=== PATIENT | male | born 1955 | race Caucasian/White ===

== ENCOUNTER 2020-09-03 07:43 | Day surgery (SDC) | payer MEDICARE, OTHER ==
[~2020-09-03 07:43] MED LIST: Lactated Ringers 1,000 ML IV SCH; Lidocaine 1%/Sod Bicarbonate in NS 8.4% 1 ML Syringe IDERM PRN; Sodium Chloride 0.9% 10 ML Syringe FLUSH PRN
--- NOTE | 2020-09-03 07:52 | PCM.PREANE ---
Preanesthetic Assessment - Procedure Proposed Procedure: colonoscopy screening - Anesthesia/Transfusion/Family Hx Anesthesia History: No Prior Anesthesia Family History of Anesthesia Reaction: No Transfusion History: No Prior Transfusion(s) - Review of Systems General: No Symptoms Pulmonary: No Symptoms Cardiovascular: Dyspnea on Exertion Gastrointestinal: No Symptoms Neurological: Numbness (hands at times) Other: Reports: Neck Pain (Hurts when turn to left) - Physical Assessment NPO Status Date: 09/02/20 NPO Status Time: 00:00 Height: 1.8 m Weight: 85 kg ASA Class: 2 Mental Status: Alert & Oriented x3 Airway Class: Mallampati = 1 Dentition: Reports: Dentures Thyro-Mental Finger Breadths: 3 Mouth Opening Finger Breadths: 3 ROM/Head Extension: Full Lungs: Clear to Auscultation, Normal Respiratory Effort Cardiovascular: Regular Rate, Regular Rhythm - Allergies Allergies/Adverse Reactions: Allergies Allergy/AdvReac Type Severity Reaction Status Date / Time Fish Containing Products Allergy Other Verified 09/02/20 15:15 - Blood Blood Available: No Product(s) Available: None - Anesthesia Plan Pre-Op Medication Ordered: None - Acknowledgements Anesthesia Type Planned: MAC Pt an Appropriate Candidate for the Planned Anesthesia: Yes Alternatives and Risks of Anesthesia Discussed w Pt/Guardian: Yes Pt/Guardian Understands and Agrees with Anesthesia Plan: Yes PreAnesthesia Questionnaire HEENT History: Reports: Impaired Vision, Other (See Below) Other HEENT History: wears glasses, has upper denture, bilateral hearing aids Cardiovascular History: Reports: High Cholesterol Respiratory History: Reports: Sleep Apnea, Other (See Below) Other Respiratory History: nocturnal hypoxia Gastrointestinal History: Reports: Colon Polyp Genitourinary History: Reports: Other (See Below) Other Genitourinary History: erectile dysfunction, elevated PSA [employer] History: Reports: None Musculoskeletal History: Reports: Other (See Below) Other Musculoskeletal History: right wrist carpal tunnel syndrome Neurological History: Reports: None Psychiatric History: Reports: None Endocrine/Metabolic History: Reports: None Hematologic History: Reports: None Immunologic History: Reports: None Dermatologic History: Reports: Other (See Below) Other Dermatologic History: left arm swelling, soft tissue mass - Infectious Disease History Infectious Disease History: Reports: None - Past Surgical History Head Surgeries/Procedures: Reports: None HEENT Surgical History: Reports: Naso-Sinus Surgery Cardiovascular Surgical History: Reports: None Respiratory Surgical History: Reports: None GI Surgical History: Reports: Colonoscopy Female Surgical History: Reports: None Male Surgical History: Reports: None Endocrine Surgical History: Reports: None Neurological Surgical History: Reports: None Musculoskeletal Surgical History: Reports: Other (See Below) Other Musculoskeletal Surgeries/Procedures:: leg surgery Oncologic Surgical History: Reports: None Dermatological Surgical History: Reports: None - SUBSTANCE USE Tobacco Use Status *Q: Former Tobacco User Tobacco Use Within Last Twelve Months: No Second Hand Smoke Exposure: No Days Per Week of Alcohol Use: 0 Number of Drinks Per Day: 0 Total Drinks Per Week: 0 Recreational Drug Use History: No - HOME MEDS Home Medications: Home Meds Aspirin 81 mg PO DAILY 09/02/20 [History] Cholecalciferol (Vitamin D3) [Vitamin D3] 2,000 unit PO DAILY 09/02/20 [History] Multivitamin [Poly-Vitamin] 1 tab PO DAILY 09/02/20 [History] Jud-3/DHA/Epa/Fish Oil [Jud 3 500 Softgel] 1 cap PO DAILY 09/02/20 [History] Rosuvastatin Calcium 20 mg PO DAILY 09/02/20 [History] Sildenafil [Viagra] 100 mg PO ASDIRECTED PRN 09/02/20 [History] - CURRENT (IN HOUSE) MEDS Current Meds: Current Medications Lactated Ringer's (Ringers, Lactated) 1,000 mls @ 125 mls/hr IV ASDIRECTED PARRISH Stop: 09/03/20 23:00 Lidocaine/Sodium Bicarbonate (Buffered Lidocaine 1% In Ns 8.4%) 0.25 ml IDERM ONETIME PRN PRN Reason: Prior to IV Start Stop: 09/03/20 23:00 Sodium Chloride (Saline Flush) 10 ml FLUSH ASDIRECTED PRN PRN Reason: Keep Vein Open Stop: 09/03/20 23:00
[2020-09-03] MEDS ORDERED: fentaNYL 100 MCG/2 ML SDV ONE (08:04)
[2020-09-03] MEDS ORDERED: Lidocaine 1% 4 ML ONE (08:04)
[2020-09-03] MEDS ORDERED: Propofol 200 MG/20 ML SDV ONE ×2 (08:04→09:08)
--- NOTE | 2020-09-03 09:32 | PCM.PRNOTE ---
- Free Text/Narrative Note: Date: 09/03/2020 Procedure: screening colonoscopy Endoscopist: Minor Grover MD Findings: Cecum reached with colonoscope. challenging scope due to redundant colon, abdominal maneuvers and supine positioning were needed. No polyps. Minor diverticular disease. Detailed Report: The patient was taken to the endoscopy suite and placed in left lateral decubitus position. Time out was performed and monitored anesthesia care was initiated. Visual inspection of the anus revealed no abnormality. Digital rectal exam was unremarkable. The lubricated colonoscope was then inserted and advanced all the way to the cecum. The ileocecal valve and appendiceal orifice were visualized. The prep was good. On slow withdrawal of the scope, mucosal surfaces were carefully inspected. No polyps were identified. A few scattered small diverticula were observed. On retroflexion within the rectum no pathology was noted. Air was suctioned prior to removal of the scope. The patient tolerated the procedure well.
== END 2020-09-03 10:17 | disposition home or self-care (01) ==
LOC: JD.SDS 07:43
PROVIDERS: ATTEND Surgery
DX: Z12.11 Encounter for screening for malignant neoplasm of colon (principal); G47.33 Obstructive sleep apnea (adult) (pediatric); E78.00 Pure hypercholesterolemia, unspecified; Z79.82 Long term (current) use of aspirin; Z79.899 Other long term (current) drug therapy; F17.210 Nicotine dependence, cigarettes, uncomplicated; Z91.013 Allergy to seafood
CPT/HCPCS: G0121; J2001; J2704; J3010; J7120; 00812